=== PATIENT | male | born 1955 | race Caucasian/White ===

== ENCOUNTER 2018-02-04 23:30 | Emergency (ER) | payer SELFPAY ==
[~2018-02-04] VITALS: Ht 177.8 cm; Wt 70.0 kg
[~2018-02-04 23:30] MED LIST: ALLO300T PO; ALPR0.254 PO; ATOR20TA PO; CARI250T PO; HYDR-3240 PO; MAGN400T26 PO; PRED1DRO EACHEYE; TRAZ50TA18 PO; ZOLP10TA PO
[2018-02-05 01:30] VITALS: BP 119/82
== END 2018-02-05 01:32 | disposition home or self-care (01) ==
LOC: ED 23:59
DX: S40.012A Contusion of left shoulder, initial encounter (principal); G89.11 Acute pain due to trauma; W01.0XXA Fall on same level from slipping, tripping and stumbling without subsequent striking against object, initial encounter; Y93.89 Activity, other specified; Y92.89 Other specified places as the place of occurrence of the external cause; Y99.8 Other external cause status
CPT/HCPCS: 70450; 99284

== ENCOUNTER 2018-02-05 09:14 | Emergency (ER) | payer SELFPAY ==
[~2018-02-05] VITALS: Ht 177.8 cm; Wt 67.0 kg
[2018-02-05 09:46] VITALS: BP 109/68
[2018-02-05 09:55] LABS: BASOPHILS # (AUTO) 0.05 x10^3/uL (0-0.1); BASOPHILS % (AUTO) 1 % (0-1); EOSINOPHILS # (AUTO) 0.09 x10^3/uL (0-0.4); EOSINOPHILS % (AUTO) 1 % (1-7); LYMPHOCYTES # (AUTO) 3.55 x10^3/uL (1-3.4); LYMPHOCYTES % (AUTO) 55 % (22-44); MD NO; MEAN CORPUSCULAR HEMOGLOBIN 37.8 pg (27.5-34.5); MEAN CORPUSCULAR HGB CONC 35.4 g/dL (33.2-36.2); MEAN CORPUSCULAR VOLUME 106.7 fL (81-97); MEAN PLATELET VOLUME 9.5 fL (7.4-10.4); MONOCYTES # (AUTO) 0.33 x10^3/uL (0.2-0.8); MONOCYTES % (AUTO) 5 % (2-9); NEUTROPHILS # (AUTO) 2.45 x10^3/uL (1.8-6.8); NEUTROPHILS % (AUTO) 38 % (42-75); PLATELET COUNT 50 x10^3/uL (130-400)
[2018-02-05] MEDS ORDERED: MECLIZINE CHEWABLE 25 MG TAB PO ONE (10:00)
[2018-02-05] MEDS ORDERED: SODIUM CHLORIDE 0.9% 1,000ML IVBOLUS ONE (10:00)
[2018-02-05 10:06] LABS: ALANINE AMINOTRANSFERASE 26 U/L (12-78); ALBUMIN 3.2 g/dL (3.4-5.0); ANION GAP 7 mmol/L (5-15); CALCIUM 7.9 mg/dL (8.5-10.1); CHLORIDE 117 mmol/L (98-107); CREATININE 1.11 mg/dL (0.7-1.3)
[2018-02-05 10:08] LABS: ALKALINE PHOSPHATASE 65 U/L (45-117); BILIRUBIN,TOTAL 0.3 mg/dL (0.2-1.0); TOTAL PROTEIN 5.2 g/dL (6.4-8.2)
== END 2018-02-05 10:16 | disposition left against medical advice (07) ==
LOC: ED 10:01
DX: R42 Dizziness and giddiness (principal); F17.210 Nicotine dependence, cigarettes, uncomplicated
CPT/HCPCS: 36415; 80053; 85025; 93005; 99285